=== PATIENT | female | born 1985 ===

== ENCOUNTER 2017-03-03 09:50 | Inpatient (IN) | payer OTHER ==
[2017-03-03 10:53] VITALS: BMI 25.8
--- NOTE | 2017-03-03 11:11 | HP ---
Past Medical History - Primary Care Physician PCP:: Jm Reddy - Admission Chief Complaint: 39 weeks, labor History of Present Illness: 31 yo f edc 03/07/16 c/o rom since 3 am today, clear fluid , contraction since last night , no bleeding, no fever, cx 9 cm 80 vx -2 . mr , clear,. fhr cat , regular contraction, declined iv1 History Source: Patient Limitations to Obtaining History: Language Barrier - Past Medical History ...: 1 ...Para: 0 ...LMP: 05/31/16 ... Weeks Gestation by Dates: 39.1 ...EDC by Dates: 03/09/17 ...EDC by Sono: 03/07/17 - Past Surgical History Hx Myomectomy: No Hx Transabdominal Cerclage: No - Smoking History Smoking history: Never smoked Have you smoked in the past 12 months: No - Alcohol/Substance Use Hx Alcohol Use: No - Social History Usual Living Arrangement: Yes: With Spouse History of Recent Travel: No Home Medications - Allergies Allergies/Adverse Reactions: Allergies Allergy/AdvReac Type Severity Reaction Status Date / Time No Known Allergies Allergy Verified 03/03/17 10:42 - Home Medications Home Medications: Ambulatory Orders Vit 108/Iron/Folic AC [ One Tablet] 1 tab PO DAILY 03/03/17 Review of Systems - Review of Systems Constitutional: reports: No Symptoms Eyes: reports: No Symptoms HENT: reports: No Symptoms Neck: reports: No Symptoms Cardiovascular: reports: No Symptoms Respiratory: reports: No Symptoms Gastrointestinal: reports: No Symptoms Genitourinary: reports: No Symptoms Breasts: reports: No Symptoms Reported Musculoskeletal: reports: No Symptoms Integumentary: reports: No Symptoms Neurological: reports: No Symptoms Endocrine: reports: No Symptoms Psychiatric: reports: No Symptoms Physical Exam - Maternity Vital Signs: Vital Signs Temperature 97.7 F 03/03/17 10:00 Pulse Rate 86 03/03/17 10:00 Respiratory Rate 20 03/03/17 10:00 Blood Pressure 134/87 03/03/17 10:00 O2 Sat by Pulse Oximetry (%) Constitutional: Yes: Well Nourished, No Distress, Calm Eyes: Yes: WNL, Conjunctiva Clear, EOM Intact HENT: Yes: WNL, Atraumatic, Normocephalic Neck: Yes: WNL, Supple, Trachea Midline Cardiovascular: Yes: WNL, Regular Rate and Rhythm Breast(s): Yes: WNL - Abdominal Exam/OB Number of Fetuses: Single Presentation: Vertex Contractions: Yes Regularity: Regular Intensity: Strong Heart Rate Location: [facility] Category: I Accelerations: Uniform Decelerations: None - Vaginal Exam/OB Vaginal Bleediing: Bloody Show Speculum Exam: No Dilatation (cm): 9 cm Effacement (%): 80 Amniotic Membrane Status: Ruptured Nitrazine Test: Positive Presentation: Vertex/Position Station: -2 - Physical Exam Musculoskeletal: Yes: WNL Extremities: Yes: WNL Edema: Yes Edema: LLE: Trace, RLE: Trace Deep Tendon Reflex Grade: Normal +2 Hemorrhage Risk Assessment - Risk Factors Medium Risk Factors: Yes: None High Risk Factors: Yes: None Risk Score: 1 Risk Level: Medium Risk Problem List - Problems (1) with 39 completed weeks gestation Code(s): Z3A.39 - 39 WEEKS GESTATION OF (2) Labor established Code(s): [id number] - (3) Labor established Code(s): [id number] - (4) Labor established Code(s): [id number] - Assessment/Plan admit for vaginal delivery, declined iv , pain meds discussed declined , scalp electrode applied, fhr cat 1
[2017-03-03 11:37] LABS: BASO % 0.2 % (0-2.0); EOS % 0.1 % (0-4.5); HEMATOCRIT 38.7 % (32.4-45.2); HEMOGLOBIN 12.7 GM/dL (10.7-15.3); LYMPH % 16.3 % (8-40); MCH 31.2 pg (25.7-33.7); MCHC 32.9 g/dl (32.0-36.0); MEAN CELL VOLUME 94.8 fl (80-96); MEAN PLT VOLUME 10.6 fl (7.5-11.1); NEUT % 79.4 % (42.8-82.8); PLATELET COUNT 230 K/MM3 (134-434); RBC 4.08 M/mm3 (3.60-5.2); RDW 13.3 % (11.6-15.6); WHITE BLOOD COUNT 14.1 K/mm3 (4.0-10.0)
[2017-03-03 11:49] LABS: INR 1.02 (0.82-1.09); PROTHROMBIN TIME (PATIENT) 11.5 SEC (9.98-11.88)
[2017-03-03 11:51] LABS: ANION GAP 14 (8-16); BLOOD UREA NITROGEN 12 mg/dL (7-18); CALCIUM 9.5 mg/dL (8.5-10.1); CHLORIDE 103 mmol/L (98-107); CO2 19 mmol/L (21-32); CREATININE 0.7 mg/dL (0.55-1.02); GLUCOSE,RANDOM 93 mg/dL (74-106); POTASSIUM 3.7 mmol/L (3.5-5.1); SODIUM 136 mmol/L (136-145)
[2017-03-03 11:52] LABS: ACTIVATED PTT 26.4 SECONDS (26.9-34.4)
[2017-03-03] MEDS ORDERED: PROMETHAZINE HCL 25 MG/1 ML VIAL ONE ×2 (12:24→14:56)
[2017-03-03] MEDS ORDERED: BUTORPHANOL TARTRATE 1 MG/ML VIAL ONE ×4 (12:24→14:55)
[2017-03-03] MEDS ORDERED: PROMETHAZINE HCL 25 MG/1 ML VIAL IVPB ONE (12:45)
[2017-03-03] MEDS ORDERED: BUTORPHANOL TARTRATE 1 MG/ML VIAL IVPB ONE (12:45)
[2017-03-03] MEDS ORDERED: DEXTROSE 5%-LACTATED RINGERS 1,000 ML IV SCH ×2 (12:45→21:45)
[2017-03-03] MEDS ORDERED: PROMETHAZINE HCL 25 MG/1 ML VIAL IVPUSH ONE (14:36)
[2017-03-03] MEDS ORDERED: BUTORPHANOL TARTRATE 1 MG/ML VIAL IVPUSH ONE (14:36)
--- NOTE | 2017-03-03 14:36 | PN ---
Progress Note (short form) - Note Progress Note: cx 9 cm, ant lip, vx 0 , fhr cat 1 , wants more pain meds , declined epidural Problem List - Problems (1) with 39 completed weeks gestation Code(s): Z3A.39 - 39 WEEKS GESTATION OF (2) Labor established Code(s): [id number] - (3) Labor established Code(s): [id number] - (4) Labor established Code(s): NJE4761 -
--- NOTE | 2017-03-03 16:54 | PN ---
Progress Note (short form) - Note Progress Note: cx full 100 vx +1 ,mr , fhr cat 1 Problem List - Problems (1) with 39 completed weeks gestation Code(s): Z3A.39 - 39 WEEKS GESTATION OF (2) Labor established Code(s): EHT1059 - (3) Labor established Code(s): CNV2585 - (4) Labor established Code(s): [id number] -
--- NOTE | 2017-03-03 19:00 | PN ---
Progress Note (short form) - Note Progress Note: cx full 100 vx 2+ fhr cat 1 Problem List - Problems (1) with 39 completed weeks gestation Code(s): Z3A.39 - 39 WEEKS GESTATION OF (2) Labor established Code(s): [id number] - (3) Labor established Code(s): LCE6790 - (4) Labor established Code(s): SBU2333 -
--- NOTE | 2017-03-03 21:05 | PN ---
Progress Note (short form) - Note Progress Note: cx full 100 vx 2+ station, no descent with pushin, fhr with variable decel advised c/s rba discussed Problem List - Problems (1) with 39 completed weeks gestation Code(s): Z3A.39 - 39 WEEKS GESTATION OF (2) Labor established Code(s): [id number] - (3) Labor established Code(s): GZV1702 - (4) Labor established Code(s): EPF7263 -
[2017-03-03] MEDS ORDERED: METHYLERGONOVINE MALEATE 0.2 MG/1 ML AMP IM PRN (21:32)
[2017-03-03] MEDS ORDERED: IBUPROFEN 800 MG/8 ML IJ IVPB PRN (21:32)
[2017-03-03] MEDS ORDERED: BENZOCAINE 28 GM HEMORRHOIDAL OINTMENT PR PRN (21:32)
[2017-03-03] MEDS ORDERED: oxyCODONE HCL 5 MG TABLET PO PRN ×2 (21:32)
[2017-03-03] MEDS ORDERED: BENZOCAINE 20% 57 GM BOTTLE TP PRN (21:32)
[2017-03-03] MEDS ORDERED: WITCH HAZEL 50% (TUCKS) 40 PAD/JAR PAD TP PRN (21:32)
[2017-03-03] MEDS ORDERED: diphenhydrAMINE HCL 25 MG CAPSULE (FP) PO PRN (21:32)
[2017-03-03] MEDS ORDERED: ELECTROLYTE-148 SOLN 1,000 ML IV SCH (21:45)
[2017-03-03] MEDS ORDERED: OXYTOCIN 20 UNITS in 0.9% NS 20 UNIT/1,000 ML INFUS.BAG IV SCH (21:45)
[2017-03-03] MEDS ORDERED: ceFAZolin SODIUM 1 GM VIAL ONE (22:04)
[2017-03-03] MEDS ORDERED: morphine SULFATE/Preservative Free 0.5 MG/ML (1cc Syringe) ONE (22:05)
[2017-03-03] MEDS ORDERED: CITRIC ACID/SODIUM CITRATE 30 ML UNIT-DOSE CUP PO ONE (22:15)
[2017-03-03] MEDS ORDERED: ONDANSETRON 4 MG/2 ML VIAL IVPUSH PRN (22:43)
[2017-03-03] MEDS ORDERED: morphine SULFATE/Preservative Free 0.5 MG/ML (1cc Syringe) SPIN ONE (22:43)
[2017-03-03] MEDS ORDERED: MEPERIDINE HCL CARPU-JECT 50 MG/1 ML DISP.SYRIN ONE (22:52)
[2017-03-03 23:03] LABS: ARTERIAL BLD GAS O2 SATURATION 29.5 % (90-98.9); ARTERIAL BLOOD GAS BASE EXCESS -4.1 meq/l (-2-2); ARTERIAL BLOOD GAS PCO2 57.2 mmHg (35-45); ARTERIAL BLOOD GAS pH 7.25 (7.35-7.45)
[2017-03-03 23:12] LABS: ARTERIAL BLOOD GAS PO2 16.1 mmHg (80-100)
[2017-03-03 23:14] LABS: VENOUS PC02 39.2 mmHg (38-52); VENOUS PH 7.32 (7.32-7.42); VENOUS PO2 37.8 mmHg (28-48)
[2017-03-03] MEDS ORDERED: OXYTOCIN 20 UNITS in 0.9% NS 20 UNIT/1,000 ML INFUS.BAG IV ONE (23:39)
[2017-03-04] MEDS ORDERED: CEFAZOLIN 1 GM/D5W 50 ML IVPB SCH (02:00)
[2017-03-04] MEDS: CEFAZOLIN 1 GM PUSH 1 GM/10 ML DISP.SYRIN IVPUSH SCH ×2 (02:36→10:00)
[2017-03-04 08:46] LABS: EOS % 0.1 % (0-4.5); HEMOGLOBIN 10.1 GM/dL (10.7-15.3); LYMPH % 11.8 % (8-40); MCH 31.5 pg (25.7-33.7); MCHC 32.7 g/dl (32.0-36.0); MEAN CELL VOLUME 96.3 fl (80-96); NEUT % 82.1 % (42.8-82.8); PLATELET COUNT 175 K/MM3 (134-434); RBC 3.22 M/mm3 (3.60-5.2); RDW 13.3 % (11.6-15.6); WHITE BLOOD COUNT 14.6 K/mm3 (4.0-10.0)
--- NOTE | 2017-03-04 09:25 | PN ---
Progress Note (short form) - Note Progress Note: Anesthesia/Pain Pt seen and examined S:alert and awake ,comfortable O: Vital Signs Temperature 98.9 F 03/04/17 06:00 Pulse Rate 90 03/04/17 06:00 Respiratory Rate 20 03/04/17 06:00 Blood Pressure 104/62 03/04/17 06:00 O2 Sat by Pulse Oximetry (%) 100 03/04/17 00:05 CBC, BMP 03/04/17 08:00 03/03/17 10:58 A/P:s/p c section Doing well post op Continue current care Saeid White MD
[2017-03-04] MEDS: SIMETHICONE 80 MG TAB.CHEW (FP) PO PRN ×4 (10:44→22:02)
[2017-03-04] MEDS: ACETAMINOPHEN 325 MG TABLET (FP) PO PRN ×4 (10:44→22:02)
[2017-03-04] MEDS: IBUPROFEN 600 MG TABLET (FP) PO PRN ×3 (10:45→18:07)
--- NOTE | 2017-03-04 10:55 | PN ---
Progress Note (short form) - Note Progress Note: Post op day#1.S/P C section under spinal anesthesia with duramorph uneventful.Patient stable and c/o some pain for which she is on medication.No any anesthesia related problem.Patient Dc from the anesthesia care.
--- NOTE | 2017-03-04 15:43 | PN ---
Progress Note (short form) - Note Progress Note: pod 1 s/p c/s CBC, BMP 03/04/17 08:00 03/03/17 10:58 Last Vital Signs Temp Pulse Resp BP Pulse Ox 99.5 F 88 20 107/65 100 03/04/17 14:00 03/04/17 14:00 03/04/17 14:00 03/04/17 14:00 03/04/17 00:05 abdomen soft, no distension, no cva incision dry, clean no calf tenderness no execess vaginal bleeding plan ambulate , advance diet pain management Problem List - Problems (1) with 39 completed weeks gestation Code(s): Z3A.39 - 39 WEEKS GESTATION OF (2) Labor established Code(s): [id number] - (3) Labor established Code(s): IIW4176 - (4) Labor established Code(s): [id number] -
[2017-03-04] MEDS ORDERED: BISACODYL 10 MG SUPP.RECT RC PRN (21:33)
[2017-03-05] MEDS: ACETAMINOPHEN 325 MG TABLET (FP) PO PRN ×4 (04:01→20:51)
[2017-03-05] MEDS: SIMETHICONE 80 MG TAB.CHEW (FP) PO PRN ×4 (04:02→20:51)
--- NOTE | 2017-03-05 06:21 | OP ---
DATE OF OPERATION: 03/03/2017 PREOPERATIVE DIAGNOSES: , 39 weeks, labor, failure of descent in 2nd stage of labor, nonreassuring heart rate. POSTOPERATIVE DIAGNOSES: , 39 weeks, labor, failure of descent in 2nd stage of labor, nonreassuring heart rate. PROCEDURE: Primary low-segment transverse section. SURGEON: Rubi Reddy MD CERAMIC ENGINEERING PROFESSOR: Valeria Parra DO ESTIMATED BLOOD LOSS: 500 mL. FINDINGS: A live baby girl, 9, 9, occiput posterior position, cord around the body once. OPERATION: Patient was taken to the operating room. Under adequate spinal anesthesia, abdomen and perineum were prepped and draped. Pfannenstiel abdominal skin incision was made. Abdominal wall was cut layer by layer until peritoneum was exposed and incised. Upon entering the abdominal cavity, lower uterine segment was identified and uterovesical fold of peritoneum established. Bladder was pushed down. Then, with the low blade of the Webster retractor in the pelvis, a low-transverse uterine incision was made. Incision extended laterally. Amniotic sac was entered, clear fluid. Head delivered from occiput posterior position. Nose and pharynx were suctioned. Live baby girl was delivered. Cord around the body x1. Placenta was delivered manually. Uterine cavity was cleaned of all remaining tissue. Uterine incision was closed in 2 layers, 1st layer with 0 Biosyn continuous suture, the 2nd layer with 0 Biosyn imbricating the 1st layer. Bladder flap was closed with 0 Biosyn continuous suture. Both tubes and ovaries were checked and normal. No active bleeding was seen. All the lap pads, sponge and instrument counts were correct. Then, peritoneum was closed with 0 Biosyn continuous suture, muscle layer brought together with interrupted suture of 0 Biosyn, fascia was closed with 0 Biosyn continuous suture, subcutaneous fat with interrupted suture of 0 Biosyn and the skin was closed with jos. Patient tolerated the procedure well, left the OR in good condition. RUBI REDDY M.D. [id number]
--- NOTE | 2017-03-05 08:08 | PN ---
Progress Note (short form) - Note Progress Note: pod 2 doing well, ambulating, passing gas CBC, BMP 03/04/17 08:00 03/03/17 10:58 Last Vital Signs Temp Pulse Resp BP Pulse Ox 98.2 F 85 20 116/69 100 03/04/17 22:00 03/04/17 22:00 03/04/17 22:00 03/04/17 22:00 03/04/17 00:05 abdomen soft, no distension, no cva incision dry, clean no calf tenderness no excess vaginal bleeding plan ambulate, cbc in am Problem List - Problems (1) with 39 completed weeks gestation Code(s): Z3A.39 - 39 WEEKS GESTATION OF (2) Labor established Code(s): [id number] - (3) Labor established Code(s): [id number] - (4) Labor established Code(s): IRL5485 -
[2017-03-05] MEDS: IBUPROFEN 600 MG TABLET (FP) PO PRN ×3 (09:58→20:52)
[2017-03-05] MEDS ORDERED: SENNOSIDES/DOCUSATE COMBO (SENNA PLUS) TABLET (UD) PO PRN (22:00)
[2017-03-06] MEDS: ACETAMINOPHEN 325 MG TABLET (FP) PO PRN ×2 (05:34→11:46)
[2017-03-06] MEDS: SIMETHICONE 80 MG TAB.CHEW (FP) PO PRN ×2 (05:34→11:45)
[2017-03-06] MEDS: IBUPROFEN 600 MG TABLET (FP) PO PRN ×2 (05:34→11:46)
[2017-03-06 08:00] LABS: BASO % 0.3 % (0-2.0); EOS % 0.7 % (0-4.5); HEMATOCRIT 31.3 % (32.4-45.2); HEMOGLOBIN 10.4 GM/dL (10.7-15.3); MCH 31.7 pg (25.7-33.7); MCHC 33.1 g/dl (32.0-36.0); MEAN CELL VOLUME 95.7 fl (80-96); MEAN PLT VOLUME 9.4 fl (7.5-11.1); PLATELET COUNT 232 K/MM3 (134-434); RBC 3.27 M/mm3 (3.60-5.2); RDW 13.4 % (11.6-15.6); WHITE BLOOD COUNT 15.6 K/mm3 (4.0-10.0)
[2017-03-06 08:46] VITALS: BP 125/84; PULSE 83; TEMP 99
--- NOTE | 2017-03-06 09:31 | PN ---
Post Progress Note Post Day: 3 Type of Delivery: Primary C/S Vital Signs: Vital Signs Temperature 99.0 F 03/06/17 08:43 Pulse Rate 83 03/06/17 08:43 Respiratory Rate 20 03/06/17 08:43 Blood Pressure 125/84 03/06/17 08:43 O2 Sat by Pulse Oximetry (%) 100 03/04/17 00:05 Breast Exam: Yes: Soft Uterus: Yes: Fundus Firm Incision: Yes: Asad intact Abdomen/GI: Yes: Abdomen soft Lochia: Yes: Rubra Lochia, amount: Small Extremities: Yes: Calves non-tender Perineum: Yes: Intact Activity: Ambulating - Labs Labs: CBC WBC 15.6 K/mm3 (4.0-10.0) H 03/06/17 06:20 RBC 3.27 M/mm3 (3.60-5.2) L 03/06/17 06:20 Hgb 10.4 GM/dL (10.7-15.3) L 03/06/17 06:20 Hct 31.3 % (32.4-45.2) L 03/06/17 06:20 MCV 95.7 fl (80-96) 03/06/17 06:20 MCH 31.7 pg (25.7-33.7) 03/06/17 06:20 MCHC 33.1 g/dl (32.0-36.0) 03/06/17 06:20 RDW 13.4 % (11.6-15.6) 03/06/17 06:20 Plt Count 232 K/MM3 (134-434) D 03/06/17 06:20 MPV 9.4 fl (7.5-11.1) 03/06/17 06:20 Neutrophils % 81.0 % (42.8-82.8) 03/06/17 06:20 Lymphocytes % 13.0 % (8-40) 03/06/17 06:20 Monocytes % 5.0 % (3.8-10.2) 03/06/17 06:20 Eosinophils % 0.7 % (0-4.5) D 03/06/17 06:20 Basophils % 0.3 % (0-2.0) D 03/06/17 06:20 Assessment/Plan oob reg diet may dc today will see in clinic on wednesday for wound care
--- NOTE | 2017-03-08 15:47 | PATH ---
Surgical Pathology Report Patient Name: DEENA ESCOBAR Med. Rec. 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 Specimen(s) Received PLACENTA Clinical History , 39.3 weeks gestation PROM- 19 hours, failure to progress, nonreassuring heart rate Final Diagnosis PLACENTA, SECTION: 763 g THIRD TRIMESTER PLACENTA WITH TRIVASCULAR UMBILICAL CORD AND UNREMARKABLE PLACENTAL MEMBRANES. Electronically Signed Anna Osman M.D. Gross Description The specimen is received fresh labeled placenta and is a 763 gram, 25.0 x 19.5 x 2.6 cm. placenta with attached membranes and umbilical cord. The attached membranes are lal, translucent with focal opacities and insert marginally. The umbilical cord measures 23.5 cm. in length and averages 1.1 cm. in diameter. The cord inserts eccentrically, 5.5 cm. to the nearest margin. No true knots or strictures are identified. Cut surface of the umbilical cord reveals 3 vessels. The surface is marmolejo-blue with minimal fibrin deposition and appropriate caliber vessels. The maternal surface is red-brown with focal defects. Sectioning reveals red-brown, spongy parenchyma. No lesions are identified. Ux Consultant sections are submitted in three cassettes as follows: 1- membrane rolls and umbilical cord; 2-3- full thickness sections of placenta. /03/05/2017 [facility]03/05/2017
== END 2017-03-06 13:15 | disposition home or self-care (01) | DRG 540 ==
LOC: JLDR 09:50 → J3W 03-04 01:00
PROVIDERS: ADMIT Obstetrics & Gynecology; ATTEND Obstetrics & Gynecology
PROC: 10D00Z1 Extraction of Products of Conception, Low, Open Approach (ICD-10-PCS; principal; 2017-03-03)
DX: O76 Abnormality in fetal heart rate and rhythm complicating labor and delivery (principal); O62.0 Primary inadequate contractions; Z3A.39 39 weeks gestation of pregnancy; Z37.0 Single live birth
CPT/HCPCS: 36415; 36600; 80048; 82803; 85025; 85610; 85730; 86593; 86850; 86900; 86901; 88307-TC